=== PATIENT | male | born 1950 | race Caucasian/White ===

== ENCOUNTER 2016-08-20 19:22 | Emergency (ER) | payer MEDICARE, BC ==
[2016-08-20 19:23] VITALS: BP 139/81; PULSE 88; RESP 16; TEMP 97.8; O2SAT 98
--- NOTE | 2016-08-20 20:47 | PD ---
HPI Chief Complaint: Laceration/Skin Injury Time Seen by Provider: 20:47 Travel History International Travel<30 days: No Contact w/Intl Traveler<30days: No Traveled to known affect area: No History of Present Illness HPI Patient patient comes in for evaluation status post trip and fall. He states that he tripped over a curb hitting his head on a fence. Denies any loss of consciousness, neck pain, nausea, vomiting, dizziness, change in vision or being on any blood thinners. Denies any chest pain pre-or post fall. Patient is uncertain of his last tetanus shot. He states that he rinsed his laceration with water and applied pressure prior to coming to the emergency department. [facility] Past Medical History Medical History: Denies Significant Hx Social History Alcohol Use: No Tobacco Use: No Substance Use: No Allergies-Medications (Allergen,Severity, Reaction): Coded Allergies: No Known Allergies (Unverified , 08/20/16) Review of Systems Except as stated in HPI: all other systems reviewed are Neg Physical Exam Narrative GENERAL: Well-developed, well nourished, in no acute distress, and non-ill appearing. SKIN: Warm and dry. Laceration left forehead. HEAD: Atraumatic. Normocephalic. EYES: Pupils equal and round. EOMI. No scleral icterus. No injection or drainage. ENT: No nasal bleeding or discharge. Mucous membranes pink and moist. NECK: Trachea midline. Supple. No nuclear rigidity. RESPIRATORY: No accessory muscle use. No respiratory distress. MUSCULOSKELETAL: No obvious deformities. No clubbing. No cyanosis. No edema. Full range of motion. NEUROLOGICAL: Awake and alert. No obvious cranial nerve deficits. Motor grossly within normal limits. Normal speech. PSYCHIATRIC: Appropriate mood and affect; insight and judgment normal. Data Data Last Documented VS Vital Signs Date Time Temp Pulse Resp B/P Pulse Ox O2 Delivery O2 Flow Rate FiO2 08/20/16 19:23 97.8 88 16 139/81 98 Room Air Orders Tetanus/Diphtheria Tox Adult (Tetanus/Di (08/20/16 21:00) Ct Brain W/O Iv Contrast(Rout) (08/20/16 ) Ct Cerv Spine W/O Contrast (08/20/16 ) MDM Medical Decision Making Medical Screen Exam Complete: Yes Emergency Medical Condition: Yes Differential Diagnosis Fracture, contusion, laceration, abrasion, intracranial hemorrhage, other Narrative Course Patient presents with head injury. There was no evidence of cranial or intracranial injury noted on CT of the head and no evidence of fracture or injury to cervical spine on C-spine CT. The patient has been behaving normally and no notable altered mental status. Bella score of 15. The neurologic exam is normal. The patient is awake and aware and motor sensory exams are normal. There is no clinical evidence to support intracranial injury or bleed. The patient suffered laceration to the face. The laceration appeared clean and approximated well. There was no evidence to suggest foreign bodies. Visual and tactile exams were unremarkable. There was no evidence of neurovascular injury as well. The patient was irrigated with copious sterile normal saline and primary repair was performed using Steri-Strips and Dermabond. Please see procedure note. The patient was given signs and symptom warnings for infection, such as increasing pain, redness, swelling, associated heat, pus or fever. The patient was given instructions for timely follow up. The patient agreed with plan of care. Patient in no obvious distress upon re-evaluation. All pertinent Radiology result(s) discussed with patient including degenerative disc noted on CT the C- spine. Any questions/concerns in reference to patient diagnosis/condition discussed and clarified prior to patient's discharge. Reinforced sheer importance of close follow up with patient's primary physician or primary care clinic. Instructed patient to return to ED immediately, if symptoms return/ worsen. Pt showed understanding of above instructions. Further instructions and recommendations were detailed in discharge paperwork. Pt ambulated without difficulty out of ED at discharge. Procedures Procedure Narrative LACERATION REPAIR LOCATION: Left forehead LENGTH: 5 cm NUMBER OF STITCHES/HEATHER: Steri-Strips and Dermabond REPAIR: Verbal consent was obtained. The area of the laceration was cleaned and prepped. The wound was copiously irrigated and explored without evidence of foreign body, bony involvement, ligament injury, tendon injury, periosteum, or neurovascular injury. The wound was closed using Steri-Strips and Dermabond. This was a single layer repair. The patient was advised to keep the affected area as clean and dry as possible using soap and water. There were no complications. Patient tolerated the procedure well. Diagnosis Primary Impression: Head injury Qualified Code: S09.90XA - Head injury, initial encounter Additional Impression: Laceration of face Qualified Code: S01.81XA - Laceration of face, initial encounter Patient Instructions: Facial Laceration (ED), General Instructions, Head Injury (ED), Skin Adhesive Care (ED) Additional Instructions: Follow-up with your primary care physician this week for reevaluation. Keep wound dry and clean as possible using soap and water. Return to the emergency department if symptoms get worse. Disposition: 01 DISCHARGE HOME Condition: Stable Yogi Brizuela Aug 20, 2016 20:47
[2016-08-20] MEDS ORDERED: TETANUS/DIPHTHERIA TOXOID ADULT 0.5 ML VIAL IM ONE (21:00)
--- NOTE | 2016-08-20 21:58 | RADRPT ---
EXAM DATE/TIME: 08/20/2016 21:26 [facility] COMPARISON: No previous studies available for comparison. INDICATIONS : Trauma, fell and hit head on fence. Laceration to forehead. RADIATION DOSE: 35.03 CTDIvol (mGy) MEDICAL HISTORY : None SURGICAL HISTORY : None. ENCOUNTER: Initial ACUITY: 1 day PAIN SCALE: 2/10 LOCATION: cranial TECHNIQUE: Multiple contiguous axial images were obtained of the head. Using automated exposure control and adj ustment of the mA and/or kV according to patient size, radiation dose was kept as low as reasonably a chievable to obtain optimal diagnostic quality images. FINDINGS: CEREBRUM: The ventricles are normal for age. No evidence of midline shift, mass lesion, hemorrhage or acute in farction. No extra-axial fluid collections are seen. POSTERIOR FOSSA: The cerebellum and brainstem are intact. The 4th ventricle is midline. The cerebellopontine angle i s unremarkable. EXTRACRANIAL: The visualized portion of the orbits is intact. SKULL: The calvaria is intact. No evidence of skull fracture. CONCLUSION: Normal examination. Louie Valerio MD on August 20, 2016 at 21:52 Board Certified Radiologist. This report was verified electronically.
--- NOTE | 2016-08-20 22:01 | RADRPT ---
EXAM DATE/TIME: 08/20/2016 21:26 [facility] COMPARISON: No previous studies available for comparison. INDICATIONS : Trauma, fell and hit head on fence. Laceration to forehead. RADIATION DOSE: 19.36 CTDIvol (mGy) MEDICAL HISTORY : None SURGICAL HISTORY : None. ENCOUNTER: Initial ACUITY: 1 day PAIN SCALE: 0/10 LOCATION: neck TECHNIQUE: Volumetric scanning of the cervical spine was performed. Multiplanar reconstructions in the sagittal, coronal and oblique axial planes were performed. Using automated exposure control and adjustment o f the mA and/or kV according to patient size, radiation dose was kept as low as reasonably achievable to obtain optimal diagnostic quality images. FINDINGS: There is no fracture or spondylolisthesis. Moderate degenerative disc disease is present in the lower cervical spine without significant bony canal stenosis. No prevertebral soft tissue swelling. Modera te facet arthropathy. CONCLUSION: 1. No acute findings. Moderate degenerative disc disease and facet arthropathy. Louie Valerio MD on August 20, 2016 at 21:57 Board Certified Radiologist. This report was verified electronically.
== END 2016-08-20 22:33 | disposition home or self-care (01) ==
LOC: NEPB 19:22
DX: S01.81XA Laceration without foreign body of other part of head, initial encounter (principal); S09.90XA Unspecified injury of head, initial encounter; Z23 Encounter for immunization; W01.198A Fall on same level from slipping, tripping and stumbling with subsequent striking against other object, initial encounter
CPT/HCPCS: 12013; 70450; 72125; 90471; 90714